=== PATIENT | female | born 1945 | race Caucasian/White ===

== ENCOUNTER → 2017-08-12 | Outpatient (CLI) | payer MEDICARE, OTHER ==
[~2017-08-12] MED LIST: ALPR-460 PO; AMLO-39 PO; AMLO1TAB PO; AMOX-559 PO; ASPI81TA94 PO; CALC-682 PO; CALC-852 PO; CHOL200022 PO; EPIN0.3P15 IM; FLU150 PO; FLU45SYR25 IM ONLY; FLU60SYR30 IM ONLY; FLUT9.9S; KRIL1CAP12 PO; LEVO50TA80 PO; MOMR; MULT-820 PO; OSE75 PO; PNEU0.5D3 IM; VAL80 PO; VALS80TA7 PO; VIT-7 PO
[2017-08-12 08:26] LABS: LDL CHOLESTEROL 75 mg/dl
== END ==
LOC: LAB 07:53
PROVIDERS: ATTEND Internal Medicine
DX: E78.2 Mixed hyperlipidemia (principal); I10 Essential (primary) hypertension; E03.9 Hypothyroidism, unspecified
CPT/HCPCS: 36415; 82040; 82247; 82310; 82374; 82435; 82465; 82565; 82947; 83718; 84075; 84132; 84155; 84295; 84443; 84450; 84460; 84478; 84520

== ENCOUNTER → 2017-10-05 | Outpatient (CLI) | payer MEDICARE, OTHER ==
[~2017-10-05] MED LIST changes: -VALS80TA7 PO; +VALS80TA8 PO
== END ==
LOC: LAB 13:41
PROVIDERS: ATTEND Otolaryngology
DX: J30.1 Allergic rhinitis due to pollen (principal)
CPT/HCPCS: 36415; 86003

== ENCOUNTER → 2017-10-21 | Outpatient (CLI) | payer MEDICARE, OTHER ==
[~2017-10-21] MED LIST changes: +LOSA50TA72 PO
--- NOTE | 2017-10-22 15:47 | RADIOLOGY IMAGING REPORT ---
FACILITY: [facility] [place] PATIENT NAME: NAYELY VERONICA : [id number] MR: [id number] V: [id number] EXAM DATE: [id number] ORDERING PHYSICIAN: PIERRE VALENCIA TECHNOLOGIST: Trinidad Munroe PROCEDURE:BILATERAL DIGITAL SCREENING MAMMOGRAM WITH CAD ASSISTED INTERPRETATION & 3D TOMOSYNTHESIS COMPARISON:Prior mammograms dated 08/17/16, 08/01/15, 07/24/15, 07/12/14, 06/20/13, 05/23/12 INDICATIONS:screening FINDINGS: Moderately dense heterogeneous fibroglandular tissue is seen throughout the breasts. The parenchymal pattern has remained stable allowing for difference in mammographic technique & patient positioning. There is no evidence of malignant appearing mass, malignant appearing calcification or other secondary sign of malignancy in either breast. DIAGNOSTIC CATEGORY 1--NEGATIVE. RECOMMENDATIONS: ROUTINE MAMMOGRAM AND CLINICAL EVALUATION. IMPRESSION: BIRADS 1: Negative. No significant abnormality is seen. Dictated by: Rosemarie Carpenter M.D. on 10/21/2017 at 16:25 Transcribed by: URMILA on 10/22/2017 at 9:09 Approved by: Rosemarie Carpenter M.D. on 10/22/2017 at 15:46 [facility]
== END ==
LOC: MAMO 00:28
PROVIDERS: ATTEND Internal Medicine
DX: Z12.31 Encounter for screening mammogram for malignant neoplasm of breast (principal)
CPT/HCPCS: 77063; 77067

== ENCOUNTER → 2018-04-04 | Outpatient (CLI) | payer MEDICARE, OTHER ==
[~2018-04-04] MED LIST changes: +ASPI-1471 PO; +CHOL200018 PO; -CHOL200022 PO; +IVER30CR TOP; +KRIL1CAP2 PO; +LORA1TAB69 PO; -LOSA50TA72 PO; +LOSA50TA80 PO; +[UNRECOGNIZED DRUG - OTHER] PO
--- NOTE | 2018-04-04 11:50 | RADIOLOGY IMAGING REPORT ---
FACILITY: [facility] PATIENT NAME: Ale Jason : 1945 MR: [id number] V: [id number] EXAM DATE: ORDERING PHYSICIAN: COURTNEY WRIGHT TECHNOLOGIST: Location: [facility] Patient: Ale Jason : 1945 Visit/Account:[id number] Date of Sevice: 04/04/2018 DEXA Scan Clinical history: Postmenopausal. Comparison: DEXA scan from 07/12/2014. HIP: Bone mineral density (BMD) measured in the Left total hip region correlates with a Z-score 0.1 and a T-score of -1.1 which is osteopenia as defined by the World Health Organization. The corresponding r isk of fracture in the hip is 2-3 times increased compared with a young adult reference population. T his total hip value has increased by 1.8 % since the prior study. More than 5% change is considered significant. T score left femoral neck -1.3 Bone mineral density (BMD) measured in the Femoral Neck region measures 0.851 g/cm2. FOREARM: The bone mineral density (BMD) measured in the ULTRADISTAL Left forearm, where trabecular bone predom inates, correlates with a Z-score -1.6 and a T-score of -3.5 which is osteoporosis as defined by the World Health Organization. The corresponding risk of fracture in the distal forearm is 12 times incr eased compared with a young adult reference population. The bone mineral density (BMD) in the MIDSHAFT of the forearm, where cortical bone predominates, lenny elates with a Z-score 0.5 and a T-score of -1.4 which is osteopenia as defined by the World Health Or ganization. The corresponding risk of fracture in the midshaft of the forearm is to 3 times increased compared with a young adult reference population. IMPRESSION: 1. Left Hip: Osteopenia. There has been 1.8% increase in the total hip bone mineral density since t he previous exam. 2. Femoral Neck: Bone Mineral Density is 0.851 g/cm2 3. Left Forearm: Osteoporosis. The left forearm was not previously imaged The next DEXA scan of this patient should include the following sites: L1-L4 and the left forearm. FRAX? WHO Fracture Risk Assessment Tool link: <http://www.shef.ac.uk/FRAX/tool.jsp?locationValue=9> PLEASE NOTE: 1) The World Health Organization defines low BMD as follows: T-score Normal > -1 Osteopenia < -1 and > -2.5 Osteoporosis < -2.5 without fractures Established osteoporosis < -2.5 with fractures 2) In general, you may wish to consider: Diagnosis Treatment Follow-up DEXA Normal BMD Prevention 2-3 years Osteopenia Prevention/therapy 1-2 years Osteoporosis Therapy Yearly 3) Fracture risk estimated from the T-score is more accurate for vertebral fractures (often spontane ous) than for hip fractures. Report Dictated By: Rosemarie Carpenter MD at 04/04/2018 11:44 AM Report E-Signed By: Rosemarie Carpenter MD at 04/04/2018 11:47 AM JONATHANN:AMICIVN
== END ==
LOC: RAD 00:47
PROVIDERS: ATTEND Family Medicine
DX: Z13.820 Encounter for screening for osteoporosis (principal); M85.88 Other specified disorders of bone density and structure, other site; M81.0 Age-related osteoporosis without current pathological fracture; Z78.0 Asymptomatic menopausal state
CPT/HCPCS: 77080

== ENCOUNTER → 2018-05-16 | Outpatient (CLI) | payer MEDICARE, OTHER ==
[~2018-05-16] MED LIST changes: +BIOT10004 PO; +CALC-32 PO; +KRIL1CAP19 PO; +METR60GE TOP
[2018-05-16 15:19] LABS: PLATELET COUNT, AUTOMATED 261 K/uL (150-450)
== END ==
LOC: LAB 14:33
PROVIDERS: ATTEND Family Medicine
DX: E03.9 Hypothyroidism, unspecified (principal); I10 Essential (primary) hypertension
CPT/HCPCS: 36415; 82310; 82374; 82435; 82565; 82947; 84132; 84295; 84443; 84520; 85025

== ENCOUNTER → 2018-06-15 | Outpatient (CLI) | payer MEDICARE, OTHER ==
--- NOTE | 2018-06-15 08:15 | EKG ---
FACILITY: [facility] [place] PATIENT NAME: NAYELY VERONICA : [id number] MR: [id number] V: [id number] EXAM DATE: ORDERING PHYSICIAN: MICHAELA HARDING TECHNOLOGIST: MAGALIE Mart Reason : PREOP-HAND Blood Pressure : / mmHG Vent. Rate : 062 BPM Atrial Rate : 062 BPM P-R Int : 164 ms QRS Dur : 078 ms QT Int : 436 ms P-R-T Axes : 073 063 069 degrees QTc Int : 442 ms Normal sinus rhythm Possible Left atrial enlargement Septal infarct , age undetermined Abnormal ECG No previous ECGs available Confirmed by MICHAELA TORO ([id number]) on 06/16/2018 6:36:56 AM Referred By: Confirmed By:MICHAELA TORO
== END ==
LOC: LAB 07:55
PROVIDERS: ATTEND Anesthesiology
DX: Z01.812 Encounter for preprocedural laboratory examination (principal); Z01.810 Encounter for preprocedural cardiovascular examination
CPT/HCPCS: 36415; 82040; 82247; 82310; 82374; 82435; 82565; 82947; 84075; 84132; 84155; 84295; 84450; 84460; 84520; 93005